=== PATIENT | male | born 1970 | race Caucasian/White ===

== ENCOUNTER 2021-11-09 01:37 | Emergency (ER) | payer OTHER ==
[2021-11-09] MEDS ORDERED: PERCOCET 5-3251 EACH PO (02:58)
== END 2021-11-09 03:50 | disposition home or self-care (01) ==
LOC: FER 01:37
DX: T18.5XXA Foreign body in anus and rectum, initial encounter (principal); I10 Essential (primary) hypertension; Z88.0 Allergy status to penicillin
CPT/HCPCS: 74018; 99284; J2250